=== PATIENT | male | born 1955 | race Caucasian/White ===

== ENCOUNTER 2019-02-15 12:44 | Emergency (ER) | payer BC ==
--- NOTE | 2019-02-15 14:04 | UC ---
Hand/Wrist HPI - HPI Summary HPI Summary: 64 yo male presents with left hand weakness. He tells me the 2 days ago he was working on his washing machine and his left arm was under the washer. When he removed his arm from underneath, he noticed his left hand was a little numb and weak. 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 Each day is getting better. He is right handed. - History Of Current Complaint Stated Complaint: L HAND INJ Time Seen by Provider: 02/15/19 14:04 Hx Obtained From: Patient Onset/Duration: Sudden Onset Severity Currently: None - Allergies/Home Medications Allergies/Adverse Reactions: Allergies Allergy/AdvReac Type Severity Reaction Status Date / Time No Known Allergies Allergy Verified 02/15/19 14:06 Home Medications: Home Medications Atorvastatin* [Lipitor 10 MG*] 1 tab PO DAILY 02/15/19 [History Confirmed ] PMH/Surg Hx/FS Hx/Imm Hx Endocrine History: Diabetes, Dyslipidemia Cardiovascular History: Hypertension - Surgical History Surgical History: Yes Surgery Procedure, Year, and Place: [facility]. Carpal tunnel release - Social History Lives: With Family Alcohol Use: None Substance Use Type: None Smoking Status (MU): Former Smoker Amount Used/How Often: 1 PPD X 30 YEARS Have You Smoked in the Last Year: No When Did the Patient Quit Smoking/Using Tobacco: 10 YEARS AGO Review of Systems All Other Systems Reviewed And Are Negative: Yes Constitutional: Positive: Negative Skin: Positive: Negative Respiratory: Positive: Negative Cardiovascular: Positive: Negative Musculoskeletal: Positive: Other: - left hand weakness Neurological: Positive: Negative Psychological: Positive: Negative Physical Exam - Summary Physical Exam Summary: GENERAL: NAD. WDWN. No pain distress. SKIN: No rashes, sores, lesions, or open wounds. CHEST: No accessory muscle use. Breathing comfortably and in no distress. CV: Pulses intact radial and ulnar. Cap refill <2seconds MSK: LEFT HAND: FROM. 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 No edema or obvious bony deformities. No snuffbox tenderness. FROM and NTTP at left elbow. NEURO: Alert. Sensations intact hand and all fingers. Negative tinel at elbow or wrist PSYCH: Age appropriate behavior. Triage Information Reviewed: Yes Vital Signs: Vital Signs: Temp Pulse Resp BP Pulse Ox 97.8 F 94 17 96/62 98 02/15/19 14:02 02/15/19 14:02 02/15/19 14:02 02/15/19 14:02 02/15/19 14:02 Vital Signs Reviewed: Yes Hand/Wrist Course/Dx - Course Course Of Treatment: Suspect nerve palsy. He has FROM currently and he reports that his strength is improving every day so far. Advised to continue monitoring symptoms and may take tylenol/ibuprofen for any discomfort. F/u if symptoms do not continue to improve or if they worsen. - Differential Dx/Diagnosis Provider Diagnosis: Nerve palsy Discharge - Sign-Out/Discharge Documenting (check all that apply): Patient Departure All imaging exams completed and their final reports reviewed: No Studies - Discharge Plan Condition: Stable Disposition: HOME Patient Education Materials: Radial Nerve Palsy (ED) Referrals: Gissell Sheriff MD [Primary Care Provider] - Additional Instructions: If you develop a fever, shortness of breath, chest pain, new or worsening symptoms - please call your PCP or go to the ED immediately. 1) Rest your arm/elbow. The sensation and strength will return in time. 2) May take tylenol or ibuprofen as directed to decrease inflammation - Billing Disposition and Condition Condition: STABLE Disposition: Home - Attestation Statements Provider Attestation: Please note that I left work at 14:30 Patient not seen by me Dr. Hirsch was available for consult I reviewed chart
[2019-02-15 14:06] VITALS: BP 96/62
== END 2019-02-15 14:30 | disposition home or self-care (01) ==
LOC: UCEAST 12:44
DX: S54.92XA Injury of unspecified nerve at forearm level, left arm, initial encounter (principal); X58.XXXA Exposure to other specified factors, initial encounter; Y93.E9 Activity, other interior property and clothing maintenance; Y92.018 Other place in single-family (private) house as the place of occurrence of the external cause; Y99.8 Other external cause status
CPT/HCPCS: 99211; G0463